=== PATIENT | female | born 1960 | race Caucasian/White ===

== ENCOUNTER → 2016-10-15 | Outpatient (CLI) | payer BC | LOC: MC.RAD 09:48 | DX: Z12.31 Encounter for screening mammogram for malignant neoplasm of breast (principal) ==

== ENCOUNTER → 2017-10-21 | Outpatient (CLI) | payer BC | LOC: MC.RAD 10:00 | DX: Z12.31 Encounter for screening mammogram for malignant neoplasm of breast (principal) ==

== ENCOUNTER → 2018-10-27 | Outpatient (CLI) | payer BC | LOC: MC.RAD 09:59 | DX: Z12.31 Encounter for screening mammogram for malignant neoplasm of breast (principal) ==

== ENCOUNTER → 2020-11-28 | Outpatient (CLI) | payer BC | LOC: MC.RAD 09:45 | DX: Z12.31 Encounter for screening mammogram for malignant neoplasm of breast (principal) ==

== ENCOUNTER → 2021-12-04 | Outpatient (CLI) | payer BC | LOC: MC.RAD 09:35 | DX: Z12.31 Encounter for screening mammogram for malignant neoplasm of breast (principal) ==

== ENCOUNTER → 2022-12-10 | Outpatient (CLI) | payer OTHER | LOC: MC.RAD 10:10 | DX: Z12.31 Encounter for screening mammogram for malignant neoplasm of breast (principal) ==

== ENCOUNTER → 2023-12-16 | Outpatient (CLI) | payer OTHER | LOC: MC.RAD 12:59 | DX: Z12.31 Encounter for screening mammogram for malignant neoplasm of breast (principal) ==